=== PATIENT | male | born 1985 | race Caucasian/White ===

== ENCOUNTER 2018-01-19 03:06 | Emergency (ER) | payer OTHER ==
[2018-01-19 03:12] VITALS: RESP 16
--- NOTE | 2018-01-19 03:23 | ED ---
General Adult HPI - General Chief complaint: Head Injury Stated complaint: [facility] injury Time Seen by Provider: 01/19/18 03:23 Source: patient Mode of arrival: ambulatory Limitations: no limitations - History of Present Illness Initial comments: Jackelyn is a 32-year-old male who presents to the emergency department today from work for evaluation of duration to his scalp. Just reports that he was using a pry bar to move a other tool when the pry bar slipped and he struck himself directly in the middle of the forehead right at the hairline. He did not lose consciousness. He is not experiencing any significant headache no vision change , no nausea, no vomiting. 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 Patient states that this was a completely accident. He denies any alcohol intoxication or drug use. He reports that his tetanus was updated approximately 2 years ago and he does not need a tetanus vaccination today. - Related Data Allergies Allergy/AdvReac Type Severity Reaction Status Date / Time No Known Allergies Allergy Verified 01/19/18 03:12 Review of Systems ROS Statement: Those systems with pertinent positive or pertinent negative responses have been documented in the HPI. ROS Other: All systems not noted in ROS Statement are negative. Past Medical History Past Medical History: No Reported History History of Any Multi-Drug Resistant Organisms: None Reported Past Surgical History: No Surgical Hx Reported Past Psychological History: No Psychological Hx Reported Smoking Status: Current every day smoker Past Alcohol Use History: None Reported Past Drug Use History: None Reported General Exam - General Exam Comments Initial Comments: GENERAL: Patient is well-developed and well-nourished. Patient is nontoxic and well- hydrated and is in no distress. HENT: Normocephalic, approximately 1 cm superficial laceration in the midline of the scalp at the hairline. There is no active bleeding. No raccoon eyes, no pérez signs EYES: The sclera were anicteric and conjunctiva were pink and moist. Extraocular movements were intact and pupils were equal round and reactive to light. Eyelids were unremarkable. PULMONARY: Unlabored respirations. CARDIOVASCULAR: There is a regular rate and rhythm without any murmurs gallops or rubs. ABDOMEN: Nondistended SKIN: Scalp laceration as noted above NEUROLOGIC: Patient is alert and oriented x3. Cranial nerves II through XII are grossly intact. Motor and sensory are also intact. Normal speech, volume and content. Symmetrical smile. MUSCULOSKELETAL: Normal extremities with adequate strength and full range of motion. No lower extremity swelling or edema. No calf tenderness. LYMPHATICS: No significant lymphadenopathy is noted PSYCHIATRIC: Normal psychiatric evaluation. Limitations: no limitations Limitations: no limitations Course Vital Signs 01/19/18 03:08 Temperature 98.3 F Pulse Rate 77 Respiratory 16 Rate Blood Pressure 141/98 O2 Sat by Pulse 97 Oximetry Medical Decision Making - Medical Decision Making Patient was seen and evaluated, history was obtained from the patient. Patient struck himself with a pry bar, had mild bleeding which was controlled with direct pressure. Was advised to come to the ER for evaluation due to this happening at work. Patient states that this injury happened at home he would not of leaving come to the ER for evaluation. Laceration was cleansed with Betadine and Water. The laceration is superficial and cannot be opened. At this time I don't feel there is any indication for repair as the bleeding is controlled on laceration is very superficial. Patient is in agreement with this. Patient not on any oral anticoagulant or antiplatelet medications Patiently medically cleared for discharge Disposition Clinical Impression: Closed head injury, Scalp laceration Disposition: HOME SELF-CARE Condition: Good Instructions: Concussion (ED) Is patient prescribed a controlled substance at d/c from ED?: No Referrals: None,Stated [Primary Care Provider] - 1-2 days
[2018-01-19 04:15] VITALS: BP 140/92; PULSE 62; TEMP 97.6
== END 2018-01-19 04:16 | disposition home or self-care (01) ==
LOC: EC 03:06
DX: S01.01XA Laceration without foreign body of scalp, initial encounter (principal); F17.200 Nicotine dependence, unspecified, uncomplicated; W20.8XXA Other cause of strike by thrown, projected or falling object, initial encounter; Y93.89 Activity, other specified; Y92.69 Other specified industrial and construction area as the place of occurrence of the external cause; Y99.0 Civilian activity done for income or pay
CPT/HCPCS: 99283

== ENCOUNTER 2019-06-09 16:58 | Emergency (ER) | payer OTHER ==
[2019-06-09 17:02] VITALS: BP 150/94; PULSE 86; RESP 20; TEMP 97.9
[2019-06-09] MEDS ORDERED: DIPH,PERTUS(ACELL)TETVAC-LF 0.5 ML VIAL IM ONE (17:16)
--- NOTE | 2019-06-09 17:16 | ED ---
Upper Extremity HPI - General Chief Complaint: Extremity Injury, Upper Stated Complaint: IHS-Finger injury Time Seen by Provider: 06/09/19 17:12 Source: patient Mode of arrival: ambulatory Limitations: no limitations - History of Present Illness Initial Comments: Patient is a 33-year-old male presenting to the emergency department with a chief complaint of a laceration. Patient states that he was working using an angle abrasive grinder when he lacerated the posterior aspect of the left DIP on the fourth digit. Patient denies any numbness and tingling. States there is full range of motion. Denies taking medication to alleviate the symptoms. Does report some throbbing sensation. Denies any active bleeding after the injury. Is not aware of his tetanus status. No blood thinners. - Related Data Previous Rx's Medication Instructions Recorded Cephalexin [Keflex] 500 mg PO Q6HR 3 Days #12 cap 06/09/19 Allergies Allergy/AdvReac Type Severity Reaction Status Date / Time bee venom protein (honey bee) Allergy Swelling Verified 06/09/19 17:03 Review of Systems ROS Statement: Those systems with pertinent positive or pertinent negative responses have been documented in the HPI. ROS Other: All systems not noted in ROS Statement are negative. Past Medical History Past Medical History: No Reported History History of Any Multi-Drug Resistant Organisms: None Reported Past Surgical History: No Surgical Hx Reported Past Psychological History: No Psychological Hx Reported Smoking Status: Current every day smoker Past Alcohol Use History: None Reported Past Drug Use History: None Reported General Exam Limitations: no limitations General appearance: alert, in no apparent distress Head exam: Present: atraumatic, normocephalic, normal inspection Eye exam: Present: normal appearance Pupils: Present: normal accommodation ENT exam: Present: normal exam, mucous membranes moist Neck exam: Present: normal inspection, full ROM Respiratory exam: Present: normal lung sounds bilaterally Cardiovascular Exam: Present: regular rate, normal rhythm, normal heart sounds Extremities exam: Present: full ROM, normal capillary refill, other (+2 ulnar and radial pulses bilaterally.). Absent: normal inspection (Laceration to the posterior aspect of the left fourth digit), tenderness (Minimal tenderness at the site of injury.) Back exam: Present: normal inspection, full ROM Neurological exam: Present: alert, oriented X3 Psychiatric exam: Present: normal affect, normal mood Skin exam: Present: warm, dry, intact, normal color Course Vital Signs 06/09/19 17:00 Temperature 97.9 F Pulse Rate 86 Respiratory 20 Rate Blood Pressure 150/94 O2 Sat by Pulse 99 Oximetry Procedures - Laceration Laceration #1 Consent Obtained: verbal consent Indication: laceration Site: hand (Left fourth digit) Size (cm): 2 Description: linear, contaminated Depth: simple, single layer Anesthetic Used: lidocaine 1% Anesthesia Technique: local infiltration Amount (mls): 2 Pre-repair: irrigated extensively Type of Sutures: nylon Size of Sutures: 4-0 Number of Sutures: 3 Technique: simple, interrupted Patient Tolerated Procedure: well, no complications Medical Decision Making - Medical Decision Making Patient is a 33-year-old male presenting to emergency Department with a chief complaint of laceration. On exam patient does have a 2 cm laceration posterior aspect of the left fourth digit. He has full range of motion in the fourth left digit. No numbness and tingling. She given tetanus prophylaxis. Patient also given Tylenol. Laceration site was thoroughly irrigated and the wound was slightly explored. X-ray did show some foreign bodies which I attempted to remove. Laceration site was repaired with 3 sutures. Patient tolerated procedure well. Patient will be discharged on Keflex to prevent a possible infection. Patient advised to return to emergency department in 10-14 days for suture removal. Laceration instructions given. Return precautions discussed. Case discussed with physician. Disposition Clinical Impression: Laceration of finger Disposition: HOME SELF-CARE Condition: Stable Instructions (If sedation given, give patient instructions): Care For Your Stitches (DC), Laceration (DC) Additional Instructions: Take prescribed medication as directed. Return to emergency department in 10-14 days for suture removal. Prescriptions: Cephalexin [Keflex] 500 mg PO Q6HR 3 Days #12 cap Is patient prescribed a controlled substance at d/c from ED?: No Referrals: None,Stated [Primary Care Provider] - 1-2 days Time of Disposition: 18:25
[2019-06-09] MEDS ORDERED: LIDOCAINE 1% INJ 10MG/ML (20 ML MDV) SQ ONE (17:17)
[2019-06-09] MEDS ORDERED: ACETAMINOPHEN TAB 325 MG TAB PO STA (17:41)
--- NOTE | 2019-06-09 17:44 | XR ---
EXAMINATION TYPE: XR hand limited LT DATE OF EXAM: 06/09/2019 COMPARISON: NONE HISTORY: Laceration TECHNIQUE: 2 views FINDINGS: Metacarpals are intact. I see no fracture nor dislocation. There is small densities adjacen t to the head of the middle phalanx of the ring finger just with soft tissue foreign bodies. These ar e on the medial aspect. No fracture line seen. IMPRESSION: Small foreign bodies seen at the ring finger. No fracture seen.
== END 2019-06-09 18:30 | disposition home or self-care (01) ==
LOC: EC 16:58
DX: S61.225A Laceration with foreign body of left ring finger without damage to nail, initial encounter (principal); Z23 Encounter for immunization; F17.200 Nicotine dependence, unspecified, uncomplicated; Z91.030 Bee allergy status; W31.89XA Contact with other specified machinery, initial encounter; Y92.69 Other specified industrial and construction area as the place of occurrence of the external cause; Y99.0 Civilian activity done for income or pay
CPT/HCPCS: 73120; 90715; 99283; 12031; 90471; J2001